=== PATIENT | male | born 1980 | race Caucasian/White ===

== ENCOUNTER 2021-01-29 01:58 | Outpatient (CLI) | payer MEDICAID, SELFPAY ==
--- NOTE | 2021-01-29 | DI.MRI_ITS ---
Exam(s) MR LOWER EXTREMITY LT WO EXAM: MR LOWER EXTREMITY LT WO CLINICAL HISTORY: LT HEEL PAIN, M79.672 TECHNIQUE: Multiplanar multisequence MRI was performed without intravenous contrast. IV Contrast: None. COMPARISON: CR LEFT FOOT COMPLETE from 12/14/2009 CR LEFT FOOT COMPLETE from 12/14/2009 No recent comparison. Comparison left foot 2009. FINDINGS: There is marked abnormal marrow signal in the calcaneus. Comminuted fracture lines are visible exten ding in heart is onto L and vertically oriented planes. There is extension to the anterior calcaneal process at the at the calcaneal cuboid as well as to the talar calcaneal joint. There is some surr ounding edema in the soft tissues. No additional fractures are seen. No talar dome defect is seen. The tendons appear intact. IMPRESSION: Comminuted calcaneal fracture. DATA REPOSITORY:
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
== END 2021-01-29 02:18 ==
PROVIDERS: PCP Nurse Practitioner Family; Visit Provider Nurse Practitioner Family
DX: M79.672 Pain in left foot (principal); S92.022A Displaced fracture of anterior process of left calcaneus, initial encounter for closed fracture
CPT/HCPCS: 70030; 73718

== ENCOUNTER 2023-07-04 15:11 | Outpatient (REF) | payer MEDICAID, SELFPAY ==
[2023-07-04 19:27] LABS: Abs Immature Grans 0.04 10^3/uL (0.0-0.06); Absolute Eosinophil Count 0.24 10^3/uL (0.0-0.7); Absolute Lymphocyte Count 3.99 10^3/uL (1.2-3.4); Absolute Monocyte Count 0.65 10^3/uL (0.1-0.8); Absolute Neutrophil Count 6.51 10^3/uL (1.2-6.7); Basophils % 0.3; Eosinophils % 2.1; HCT 40.5 % (40.0-50.0); Immature Grans % 0.3; Lymphocytes % 34.8; MCH 33.1 pg (27.0-33.0); MCHC 34.6 % (32.0-36.0); MCV 96 fL (80-95); MPV 12.1 fL (8.0-11.0); Monocytes % 5.7; Neutrophils % 56.8; Platelet Count 274 10^3/uL (130-400); RBC 4.23 10^6/uL (4.36-5.78); RDW 12.3 % (11.8-14.1); RDW-SD 43.4 fL; WBC 11.47 10^3/uL (4.4-10.8)
[2023-07-04 19:28] LABS: Absolute Basophil Count 0.03 10^3/uL (0.0-0.2)
[2023-07-04 19:36] LABS: ALT 28 U/L (16-63); Albumin 3.7 g/dL (3.4-5.0); Alkaline Phosphatase 60 U/L (46-116); Anion Gap 8.9 mmol/L (3-11); BUN 12 mg/dL (7-18); Bilirubin, Total 0.4 mg/dL (0.2-1.0); CO2 27.1 mmol/L (21.0-32.0); CREATININE 1.1 mg/dL (0.70-1.30); Calcium 8.8 mg/dL (8.5-10.1); Chloride 103 mmol/L (98-107); Cholesterol 197 mg/dL (<200); Estimated GFR 84.37 (mL/min/1.73m2); Glucose 131 mg/dL (74-106); HDL Cholesterol 36 mg/dL (40-60); Potassium 3.8 mmol/L (3.5-5.1); Sodium 139 mmol/L (136-145); Total Protein 6.6 g/dL (6.4-8.2); Triglyceride 529 mg/dL (<150)
[2023-07-04 20:33] LABS: Vitamin D 25 Total 18.7 ng/mL (30-100)
[2023-07-04 21:15] LABS: AST 16 U/L (15-37)
[2023-07-04 21:18] LABS: LDL CHOLESTEROL 115 mg/dL (<100)
[2023-07-06 09:13] LABS: HIV-1/2 Ag & Ab Screen Negative (Negative)
[2023-07-06 15:47] LABS: Hepatitis C Ab w Rflx HCV PCR Negative (Negative)
== END 2023-07-04 15:12 | disposition home or self-care (01) ==
LOC: NCHCN 15:11
PROVIDERS: PCP Nurse Practitioner Family; Visit Provider Nurse Practitioner Family
DX: E78.1 Pure hyperglyceridemia (principal); R73.09 Other abnormal glucose; E55.9 Vitamin D deficiency, unspecified; Z11.4 Encounter for screening for human immunodeficiency virus [HIV]; Z11.59 Encounter for screening for other viral diseases; R71.8 Other abnormality of red blood cells
CPT/HCPCS: 80053; 80061; 82306; 83721; 86803; 87389; 85025

== ENCOUNTER 2023-12-08 15:24 | Outpatient (REF) | payer OTHER, MEDICAID, SELFPAY ==
[2023-12-08 19:37] LABS: ALT 27 U/L (16-63); AST 20 U/L (15-37); Albumin 3.8 g/dL (3.4-5.0); Alkaline Phosphatase 56 U/L (46-116); Anion Gap 9.7 mmol/L (3-11); BUN 15 mg/dL (7-18); Bilirubin, Total 0.6 mg/dL (0.2-1.0); CO2 27.3 mmol/L (21.0-32.0); CREATININE 1.1 mg/dL (0.70-1.30); Calcium 8.9 mg/dL (8.5-10.1); Calculated LDL 98 mg/dL (<100); Chloride 105 mmol/L (98-107); Cholesterol 178 mg/dL (<200); Estimated GFR 84.37 (mL/min/1.73m2); Glucose 114 mg/dL (74-106); HDL Cholesterol 47 mg/dL (40-60); Potassium 3.8 mmol/L (3.5-5.1); Sodium 142 mmol/L (136-145); Total Protein 6.5 g/dL (6.4-8.2); Triglyceride 168 mg/dL (<150)
[2023-12-08 20:22] LABS: Vitamin D 25 Total 28.8 ng/mL (30-100)
== END 2023-12-08 15:25 | disposition home or self-care (01) ==
LOC: NCHCN 15:24
PROVIDERS: PCP Nurse Practitioner Family; Visit Provider Nurse Practitioner Family
DX: E78.2 Mixed hyperlipidemia (principal); E55.9 Vitamin D deficiency, unspecified
CPT/HCPCS: 80053; 80061; 82306